=== PATIENT | male | born 1980 ===

== ENCOUNTER 2024-07-01 11:35 | Emergency (ER) | payer SELFPAY ==
[2024-07-01 11:37] VITALS: BMI 34.8
[2024-07-01 12:38] VITALS: BP 141/92; PULSE 100; RESP 18; TEMP 36.9; O2SAT 97
--- NOTE | 2024-07-01 12:40 | XR_ITS ---
Examination: Ultrasound soft tissue penis TECHNIQUE: Grayscale sonographic images of the soft tissue penis Exam date and time: July 01, 2024 1313 hours INDICATIONS: Confusion dizziness 3 days ago with redness swelling and pain FINDINGS: Oval mass 9 vascular at the inferior portion of the penis 3.8 x 1.3 x 3.0 cm, consider penile hematoma IMPRESSION: Homogeneous oval mass nonvascular inferior portion of the penis 3.8 x 1.3 x 3.0 cm, consider hematoma Consider follow-up ultrasound soft tissue venous
--- NOTE | 2024-07-01 12:41 | PD.EDRME ---
Rapid Medical Screening Exam RME Arrival date/time: 07/01/24 11:35 44-year-old male presents to the emergency department today complains of injury to his penis on Monday patient reports since then he is have swelling, bruising and pain Chief Complaint: Urogenital-Male Vital signs: Vital Signs Temperature 98.4 F 07/01/24 12:38 Pulse Rate 100 07/01/24 12:38 Respiratory Rate 18 07/01/24 12:38 Blood Pressure 141/92 H 07/01/24 12:38 Pulse Oximetry (%) 97 07/01/24 12:38 Oxygen Delivery Method Room Air 07/01/24 12:38
[2024-07-01 13:06] LABS: Basophils % (Auto) 0 % (0-2.5); Eosinophils # (Auto) 0.3 Thou/mm3 (0.0-0.5); Eosinophils % (Auto) 2 % (0-10); Hematocrit 44.8 % (41.0-53.0); Hemoglobin 15.1 g/dL (13.5-16.0); Immature Granulocytes % (Auto) 1 % (0-0); Immature Granulocytes Auto 0.05 Thou/mm3 (0.00-0.00); Lymphocytes # (Auto) 2.7 Thou/mm3 (1.0-4.8); Lymphocytes % (Auto) 25 % (10-50); Mean Corpuscular HGB Conc 33.7 g/dl (31.0-37.0); Mean Corpuscular Hemoglobin 28.8 pg (25.0-35.0); Mean Corpuscular Volume 86 fL (80-100); Monocytes # (Auto) 0.5 Thou/mm3 (0.0-0.8); Monocytes % (Auto) 5 % (0-12); Neutrophils # (Auto) 7.3 Thou/mm3 (1.8-7.7); Neutrophils % (Auto) 67 % (37-80); Nucleated Red Blood Cell % 0 /100 WBC (0); Platelet Count 291 Thou/mm3 (140-440); RDW Standard Deviation 41.4 fL (35.1-43.9); Red Blood Count 5.24 Miln/mm3 (4.50-5.90); White Blood Count 10.9 Thou/mm3 (3.8-10.6)
[2024-07-01 13:16] LABS: Collection Type, Urine Clean Catch; RBC,Urine 0 /hpf (0-3)
[2024-07-01 13:23] LABS: INR 0.9 (0.9-1.3); Partial Thromboplastin Time 27.6 Seconds (22.0-36.0); Prothrombin Time 10.4 Seconds (9.0-12.2)
[2024-07-01 13:27] LABS: Alanine Aminotransferase 40 U/L (10-49); Albumin, Serum 4.7 gm/dL (3.5-5.0); Albumin/Globulin Ratio 1.7 (1.2-2.2); Alkaline Phosphatase 101 U/L (46-116); Anion Gap 7 (7-16); Aspartate Amino Transferase 24 U/L (0-34); BUN/Creatinine Ratio 19 Ratio (12-20); Bilirubin,Total 0.9 mg/dL (0.3-1.2); Blood Urea Nitrogen 17 mg/dL (9-23); Calcium 9.6 mg/dL (8.3-10.6); Calcium (Corrected) 9.6 mg/dL (8.5-10.1); Chloride 105 mMol/L (98-107); Creatinine (Component) 0.9 mg/dL (0.6-1.3); Estimated Creatinine Clearance 131.3 mL/min (>60); Globulin 2.7 gm/dL (2.3-3.5); Glucose 114 mg/dL (74-106); Osmolality,Calculated 278 (275-295); Potassium 3.9 mMol/L (3.4-5.1); Sodium 138 mMol/L (136-145); Total Protein 7.4 gm/dL (5.7-8.2); eGFR > 60 See Note
[2024-07-01 13:38] LABS: Bilirubin,Urine Negative (Negative); Blood,Urine Negative (Negative); Clarity,Urine Clear (Clear/Hazy); Color,Urine Lt-Yellow (Lt Yel-Yel); Culture Indicated,Urine Not Indicated; Glucose, Urine Negative (Negative); Ketones,Urine Negative (Negative); Leukocyte Esterase,Urine Negative (Negative); Nitrite,Urine Negative (Negative); PH,Urine 6.5 (5.0-7.0); Protein,Urine Negative (Neg - Trace); Specific Gravity,Urine 1.024 (1.001-1.035); Squamous Epithelial Cell,Urine < 1 /hpf (0-5); Urobilinogen,Urine Negative mg/dL (0.0-1.0); WBC,Urine 3 /hpf (0-5)
--- NOTE | 2024-07-01 16:07 | EDNOTE_ITS ---
ED Male Genitalurinary RME/HPI General Chief complaint: Urogenital-Male Stated complaint: POSSIBLE PENILE FX, SENT FROM PMD Time Seen by Provider: 07/01/24 15:34 Arrival date/time: 07/01/24 11:35 44 year old male present to emergency room with c/o of injury his penis last . Pt report had an erection and bend it to the side when pain and bruising occurred. pt report pain has resolved and able to urinated without complications. LOCATION: groin SEVERITY: Symptoms are described as being severe with limitations on activities of daily living CONTEXT: bend penis to the side DURATION/TIMING: The symptoms started approximately 3 days ASSOCIATED SYMPTOMS: The patient is unable to identify any other associated symptoms. MODIFYING FACTORS: The patient is unable to identify any alleviating or aggravating symptoms. PERTINENT ROS: no fevers, no nausea,vomiting, diarrhea, no dizziness/headache no rash no loc/syncope episode no abd/back pain no dsyuria,urgency,frequency REVIEW OF SYSTEMS: See History of Present Illness - with the exception of those mentioned in the history of present illness, all other systems reviewed and reported as negative GENERAL: In general the patient is awake, interactive, in an emergency department gurney. HEAD/EYES/EARS/NOSE/THROAT: normo-cephalic, atraumatic, mucus membranes are moist, anicteric, palpebral conjunctiva is pink, trachea is midline. CARDIOVASCULAR: regular rate and regular rhythm, no murmurs, heart sounds are not distant, strong pulses in all four extremities that are equal and symmetric bilateral upper and lower extremities, normal capillary refill. CHEST/PULMONARY: normal chest rise and fall, good air movement, clear to auscultation bilaterally, normal inspiratory to expiratory ratios without evidence of respiratory distress. NECK: No midline/Paraspinal tenderness, no step off ROM/Strenght intact No Kernig and bruzinski sign. No trauma ABDOMEN: soft, not tender, no masses appreciated BACK: normal range of motion without pain. : uncircumcised penis. + swelling but able to retract foreskin without complications. + ecchomosis NEUROLOGICAL: cranio-facial features are symmetric, moves all four extremities equally without obvious limitations or weakness. EXTREMITY: no tenderness to palpation over the long bones or large joints of the bilateral upper and lower extremities, no joint swelling, no joint erythema, no signs of trauma, no unilateral leg swelling and no peripheral edema. SKIN: warm, dry, well-perfused, no jaundice, no rash, no telangiectasias or petechia. PSYCH: calm, cooperative, no evidence of psychosis or agitation RME / HPI RME / HPI Narrative: 07/01/24 11:35 44-year-old male presents to the emergency department today complains of injury to his penis on Monday patient reports since then he is have swelling, bruising and pain Related Data Allergies Allergy/AdvReac Type Severity Reaction Status Date / Time No Known Allergies Allergy Verified 07/01/24 11:36 Course Course Course Narrative: US: IMPRESSION: Homogeneous oval mass nonvascular inferior portion of the penis 3.8 x 1.3 x 3.0 cm, consider hematoma Consider follow-up ultrasound soft tissue venous patient able to urinated without complications. no sign of infection. ice/rest/IBU as need for pain urine no infection pt is comfortable to go home with conservative treatment Quality Measures none Orders Category Date Time Status US extremity nonvascular LMTD Stat Exams 07/01/24 12:40 Completed CBC Stat Lab 07/01/24 12:52 Completed Comprehensive Metabolic Panel Stat Lab 07/01/24 12:52 Completed Partial Thromboplastin Time Stat Lab 07/01/24 12:52 Completed Prothrombin Time with INR Stat Lab 07/01/24 12:52 Completed UA, C/S IF [Urinalysis, C/S if Indicated] Stat Lab 07/01/24 13:00 Completed Vital Signs Vital signs: Vital Signs Temperature 98.4 F 07/01/24 12:38 Pulse Rate 100 07/01/24 12:38 Respiratory Rate 18 07/01/24 12:38 Blood Pressure 141/92 H 07/01/24 12:38 Pulse Oximetry (%) 97 07/01/24 12:38 Oxygen Delivery Method Room Air 07/01/24 12:38 Urogenital - Male Patient data External records reviewed:: None Clinical information provided by:: patient Social determinants that could affect healthcare access:: none Patient has the following chronic illnesses:: n/a How is presenting disease/condition affected by chronic disease/condition?: no chronic disease Evaluation data The following diagnostics were reviewed and interpreted by me:: other (specify) Lab and/or radiology exams considered but not ordered:: n/a Interpretation Summary: US: IMPRESSION: Homogeneous oval mass nonvascular inferior portion of the penis 3.8 x 1.3 x 3.0 cm, consider hematoma Consider follow-up ultrasound soft tissue venous Medications / Prescriptions Medications or Prescriptions considered but not ordered:: n/a Medication administrations:: n/a Consultations Consultation(s) initiated? (list below): No Diagnosis Urogenital Male Differential Diagnosis: urinary tract infection, urethritis, epididymitis and other (hematoma . phimosis ) Most likely diagnosis given after review of the tests above:: penile hematoma Admission Indicated Admission indicated?: not indicated Admission Request Was there a request for admission?: No Disposition Plan Disposition Plan: Discharge Discharge Attestation Discharge Attestation: The patient and all family members were given an opportunity to ask questions and understood the discharge instructions. Discharge instructions specifically effects, indications for sooner follow up or return to the emergency department, and the expected course of current diagnosis. Patient condition: Stable Discharge Plan Plan Patient Disposition: Intermediate/Court/Law Health Concerns: Follow with PMD as directed Take tylenol or motrin as need Return to ED if sx worsen Problem List Clinical Impression: Hematoma of penis Patient/Caregiver Discharge Instructions Education Materials: ED Hematoma Print Language: Nigerian
[2024-07-01 16:24] VITALS: BP 149/78; PULSE 77; RESP 16; TEMP 36.7; O2SAT 99
== END 2024-07-01 16:25 | disposition home or self-care (01) ==
PROVIDERS: Nurse Practitioner Primary Care; Emergency Provider Emergency Medicine
DX: S30.21XA Contusion of penis, initial encounter (principal); X50.9XXA Other and unspecified overexertion or strenuous movements or postures, initial encounter
CPT/HCPCS: 36415; 76882; 80053; 81001; 85025; 85610; 85730; 99284